=== PATIENT | female | born 1980 | race Caucasian/White ===

== ENCOUNTER 2022-08-22 07:59 | Emergency (ER) | payer MEDICAID, OTHER ==
[~2022-08-22] VITALS: Ht 167.6 cm; Wt 72.7 kg
[2022-08-22 08:28] LABS: COVID AG,FIA SOURCE NASAL SWAB
[2022-08-22 08:59] LABS: INFLUENZA TYPE A NEGATIVE FOR TYPE A (NEGATIVE); INFLUENZA TYPE B NEGATIVE FOR TYPE B (NEGATIVE)
[2022-08-22 09:10] VITALS: BP 126/72
== END 2022-08-22 09:30 | disposition home or self-care (01) ==
LOC: EMS 08:11
DX: R05.9 Cough, unspecified (principal); F17.210 Nicotine dependence, cigarettes, uncomplicated; Z59.00 Homelessness unspecified; Z20.822 Contact with and (suspected) exposure to COVID-19
CPT/HCPCS: 87804; 99283; 99406

== ENCOUNTER 2022-11-30 12:56 | Emergency (ER) | payer MEDICAID ==
[~2022-11-30] VITALS: Ht 167.6 cm; Wt 70.5 kg
[2022-11-30 13:04] VITALS: TEMP 98.2
[2022-11-30 13:12] VITALS: BP 129/74; PULSE 68; RESP 16
[2022-11-30 13:45] LABS: BASOPHILS % (AUTO) 0.6 % (0.0-2.0); EOSINOPHILS % (AUTO) 1.7 % (1.0-6.0); HEMATOCRIT 37.8 % (36-46); HEMOGLOBIN 12.6 g/dL (12.0-16.0); LYMPHOCYTES # (AUTO) 3.1 K/uL (1.0-4.8); LYMPHOCYTES % (AUTO) 33.8 % (22.0-44.0); MEAN CORPUSCULAR HEMOGLOBIN 30.3 pg (26.0-34.0); MEAN CORPUSCULAR HGB CONC 33.3 G/dL (31.0-37.0); MEAN CORPUSCULAR VOLUME 91 fL (80-100); MONOCYTES # (AUTO) 0.8 K/uL (0.1-1.0); MONOCYTES % (AUTO) 8.9 % (2.0-9.0); PLATELET COUNT (AUTO) 410 K/uL (150-450); RED BLOOD CELL COUNT(AUTO) 4.15 MIL/uL (4.00-5.20); RED CELL DISTRIBUTION WIDTH 14.6 % (11.5-14.5)
[2022-11-30 13:46] LABS: ANION GAP 9 mmol/L (8-16); CALCIUM, TOTAL 8.1 mg/dL (8.8-10.5); CARBON DIOXIDE 25 mmol/L (22-29); CHLORIDE 106 mmol/L (98-107); CREATININE 0.53 mg/dL (0.60-1.30); GLOMERULAR FILTR. RATE CALC > 60 mL/min (>60); GLUCOSE,RANDOM 101 mg/dL (70-110); POTASSIUM 3.5 mmol/L (3.5-5.1); SODIUM SERUM 140 mmol/L (136-145)
[2022-11-30 13:51] LABS: APPEARANCE,URINE CLEAR (CLEAR); BILIRUBIN,URINE NEGATIVE (NEGATIVE); GLUCOSE, URINE (UA) NEGATIVE (NEGATIVE); KETONES,URINE NEGATIVE (NEGATIVE); LEUKOCYTE ESTERASE ,URINE NEGATIVE (NEGATIVE); NITRATE,URINE NEGATIVE (NEGATIVE); OCCULT BLOOD,URINE NEGATIVE (NEGATIVE); PH,URINE 5.5 (5.0-8.0); PROTEIN,URINE NEGATIVE (NEGATIVE); SPECIFIC GRAVITIY, URINE 1.015 (1.003-1.030); UROBILINOGEN,URINE <=1.0 mg/dL (<=1.0)
[2022-11-30 14:00] LABS: AMPHET/METH SCREEN,URINE POSITIVE (NEGATIVE); BARBITURATE SCREEN, URINE NEGATIVE (NEGATIVE); BENZODIAZEPINES SCREEN,URINE NEGATIVE (NEGATIVE); CANNABINOID SCREEN,URINE NEGATIVE (NEGATIVE); COCAINE SCREEN,URINE NEGATIVE (NEGATIVE); METHADONE SCREEN, URINE NEGATIVE (NEGATIVE); OPIATE SCREEN,URINE NEGATIVE (NEGATIVE); PHENCYCLIDINE SCREEN,URINE NEGATIVE (NEGATIVE)
[2022-11-30 14:14] LABS: ALANINE AMINOTRANSFERASE 20 U/L (12-78); ALBUMIN 2.9 g/dL (3.4-5.0); ALKALINE PHOSPHATASE 79 U/L (46-116); ASPARTATE AMINOTRANSFERASE 21 U/L (15-37); BILIRUBIN,TOTAL 0.4 mg/dL (0.1-1.0); CREATINE KINASE, TOTAL ONLY 262 U/L (26-192); HCG,QUANTITATIVE < 1 mIU/mL (0-6); TOTAL PROTEIN, SERUM 6.6 g/dL (6.4-8.2)
== END 2022-11-30 15:54 ==
LOC: EMS 13:02
DX: R41.82 Altered mental status, unspecified (principal); F15.90 Other stimulant use, unspecified, uncomplicated
CPT/HCPCS: 99285; 70450; 71045; 80053; 81003; 82140; 82550; 84702; 85025; 36415; 51701; 80307; 93005; G0480

== ENCOUNTER 2023-02-11 15:31 | Emergency (ER) | payer SELFPAY ==
[~2023-02-11] VITALS: Ht 160 cm; Wt 66.8 kg
[2023-02-11 15:43] VITALS: BP 142/96; PULSE 87; RESP 16; TEMP 98.3
== END 2023-02-11 16:56 | disposition left against medical advice (07) ==
LOC: EMS 15:32
DX: R10.9 Unspecified abdominal pain (principal); Z53.21 Procedure and treatment not carried out due to patient leaving prior to being seen by health care provider
CPT/HCPCS: 93005; 99281; Z7502

== ENCOUNTER 2024-01-22 07:27 | Emergency (ER) | payer MEDICAID, OTHER ==
[~2024-01-22] VITALS: Ht 160 cm; Wt 65.0 kg
[~2024-01-22 07:27] MED LIST: DOCU-385 PO
[2024-01-22 07:42] VITALS: BP 126/66; PULSE 104; RESP 20; TEMP 98; O2SAT 100
[2024-01-22] MEDS: PERTUSS(ACELL),DIPH,TET/PF 0.5 ML SYRINGE [ADULT] IM. ONE (08:07)
[2024-01-22] MEDS: ACETAMINOPHEN 500 MG TABLET PO ONE (08:08)
[2024-01-22] MEDS: LIDOCAINE 1%/EPI 1:200,000/PF 10 ML VIAL SQ ONE (08:09)
[2024-01-22] MEDS: BACITRACIN 28 GM OINTMENT TP ONE (08:09)
[2024-01-22] MEDS: AMOX TR/POT CLAV 875 MG/125 MG TABLET PO ONE (08:09)
[2024-01-22] MEDS: IBUPROFEN 600 MG TABLET PO ONE (08:09)
[2024-01-22] MEDS: RABIES IMMUNE GLOBULIN/PF 150 UNIT/ML 10 ML VIAL IM. ONE (08:11)
[2024-01-22] MEDS: RABIES VACCINE, HUMAN DIPLOID/PF 2.5 UNITS/ML VIAL IM. ONE (08:14)
[2024-01-22] MEDS ORDERED: ACET-2247 PO (08:58)
[2024-01-22] MEDS ORDERED: AMOX-457 PO (08:58)
== END 2024-01-22 09:23 | disposition home or self-care (01) ==
LOC: EMS 07:27
DX: S41.152A Open bite of left upper arm, initial encounter (principal); F17.210 Nicotine dependence, cigarettes, uncomplicated; F12.90 Cannabis use, unspecified, uncomplicated; Z20.3 Contact with and (suspected) exposure to rabies; Z23 Encounter for immunization; W54.0XXA Bitten by dog, initial encounter; Y93.89 Activity, other specified; Y92.89 Other specified places as the place of occurrence of the external cause; Y99.8 Other external cause status
CPT/HCPCS: 99284; 90675; 90375; 90715; 90471; 90472; 96372; J3490

== ENCOUNTER 2024-10-11 19:54 | Emergency (ER) | payer OTHER ==
[~2024-10-11] VITALS: Ht 170.2 cm; Wt 86.4 kg
[~2024-10-11 19:54] MED LIST changes: +ACET-2247 PO; +AMOX-457 PO; -DOCU-385 PO
[2024-10-11 20:04] VITALS: BP 140/90; PULSE 88; RESP 17; TEMP 98.6; O2SAT 98
== END 2024-10-11 22:38 ==
LOC: EMS 19:54
DX: Z04.1 Encounter for examination and observation following transport accident (principal); F12.90 Cannabis use, unspecified, uncomplicated; F17.210 Nicotine dependence, cigarettes, uncomplicated; V89.2XXA Person injured in unspecified motor-vehicle accident, traffic, initial encounter; Y93.89 Activity, other specified; Y92.410 Unspecified street and highway as the place of occurrence of the external cause; Y99.8 Other external cause status
CPT/HCPCS: 72040; 99283

== ENCOUNTER 2025-02-14 22:58 | Emergency (ER) | payer OTHER ==
[~2025-02-14] VITALS: Ht 170.2 cm; Wt 78.6 kg
[2025-02-14 23:12] VITALS: BP 109/72; PULSE 1; RESP 18; TEMP 98.1; O2SAT 97
[2025-02-14 23:51] LABS: APPEARANCE,URINE HAZY (CLEAR); GLUCOSE, URINE (UA) NEGATIVE (NEGATIVE); LEUKOCYTE ESTERASE ,URINE LARGE (NEGATIVE); NITRATE,URINE NEGATIVE (NEGATIVE); OCCULT BLOOD,URINE MODERATE (NEGATIVE); SPECIFIC GRAVITIY, URINE 1.036 (1.003-1.030)
[2025-02-15 00:19] LABS: SQUAMOUS EPITHELIAL CELL,UR Few /LPF (None Seen)
[2025-02-15 00:23] LABS: HCG,QUAL URINE NEGATIVE (NEGATIVE)
[2025-02-15] MEDS ORDERED: CIPR250T6 PO (14:17)
== END 2025-02-15 06:25 | disposition left against medical advice (07) ==
LOC: EMS 23:35
DX: R10.30 Lower abdominal pain, unspecified (principal); Z53.21 Procedure and treatment not carried out due to patient leaving prior to being seen by health care provider
CPT/HCPCS: 81001; 84703; 87086; 99281; Z7502

== ENCOUNTER 2025-02-15 08:21 | Emergency (ER) | payer OTHER ==
[~2025-02-15] VITALS: Ht 170.2 cm; Wt 78.6 kg
[2025-02-15 08:23] VITALS: TEMP 97.9
[2025-02-15 08:54] LABS: APPEARANCE,URINE HAZY (CLEAR); GLUCOSE, URINE (UA) NEGATIVE (NEGATIVE); LEUKOCYTE ESTERASE ,URINE LARGE (NEGATIVE); NITRATE,URINE NEGATIVE (NEGATIVE); OCCULT BLOOD,URINE SMALL (NEGATIVE); SPECIFIC GRAVITIY, URINE 1.024 (1.003-1.030)
[2025-02-15 09:08] LABS: SQUAMOUS EPITHELIAL CELL,UR Many /LPF (None Seen)
[2025-02-15] MEDS: KETOROLAC TROMETHAMINE 30 MG/ML VIAL IVP ONE (10:39)
[2025-02-15] MEDS: CefTRIAXone 1 GM/DEXTROSE 50 ML IV ONE (10:40)
[2025-02-15] MEDS ORDERED: CIPR250T6 PO (14:17)
[2025-02-15 14:30] VITALS: BP 120/67; PULSE 64; RESP 17; O2SAT 99
== END 2025-02-15 15:14 | disposition home or self-care (01) ==
LOC: EMS 08:22
DX: N39.0 Urinary tract infection, site not specified (principal); F12.90 Cannabis use, unspecified, uncomplicated; F17.210 Nicotine dependence, cigarettes, uncomplicated; R10.A1 Flank pain, right side; Z86.19 Personal history of other infectious and parasitic diseases; Z79.899 Other long term (current) drug therapy
CPT/HCPCS: 99284; 96365; 96375; 81001; 87086; J1885; J0696